=== PATIENT | male | born 1985 | race Caucasian/White ===

== ENCOUNTER 2019-07-23 18:02 | Emergency (ER) | payer OTHER, SELFPAY ==
[2019-07-23 18:05] VITALS: BP 129/68; PULSE 56; RESP 16; TEMP 37.2; O2SAT 98; BMI 29.9
--- NOTE | 2019-07-23 18:39 | ED_ITS ---
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 He denies any fever nor chills. He denies any nausea or vomiting. He states that he has had increased sputum production, particularly at night for the past few days. Both his and child are at home with similar symptoms although much more significant, they are both on antibiotics. Child recently started at daycare. MD Complaint: cough, sore throat, rhinorrhea and nasal congestion Onset (ago): week(s) Duration: intermittent Severity: mild Relieving factors: nothing Exacerbating factors: nothing Able to tolerate fluids by mouth: Yes Context: sick contacts Treatments prior to arrival: acetaminophen and ibuprofen Related Data Allergies Allergy/AdvReac Type Severity Reaction Status Date / Time Penicillins Allergy Unknown Verified 07/23/19 18:09 Review of Systems Constitutional Constitutional: Denies chills, Denies fatigue, Denies fever(s), Denies frequent falls, Denies lethargy and Denies weakness Eyes Eyes: Denies change in vision, Denies eye discharge, Denies irritation and Denies loss of vision ENT Ears, Nose, Mouth, and Throat: Denies change in voice, Denies dizziness, Reports nasal congestion, Reports nasal discharge, Denies neck pain, Reports sore throat and Denies throat swelling Cardiovascular Cardiovascular: Denies chest pain, Denies irregular heart rhythm, Denies lightheadedness, Denies palpitations, Denies dyspnea, Denies dyspnea on exertion and Denies orthopnea Respiratory Respiratory: Reports cough, Denies dyspnea, Denies dyspnea on exertion and Denies wheezing Gastrointestinal Gastrointestinal: Denies abdominal pain, Denies change in bowel habits, Denies diarrhea, Denies nausea and Denies vomiting Genitourinary Genitourinary: Denies hematuria, Denies flank pain, Denies urinary incontinence and Denies urinary urgency Musculoskeletal Musculoskeletal: Denies back pain, Denies muscle weakness, Denies neck pain, Denies numbness and Denies tingling Integumentary/Breasts Skin/Breast: Denies pruritus, Denies erythema, Denies rash and Denies wounds Neurologic Neurologic: Denies behavioral changes, Denies confusion, Denies dizziness, Denies frequent falls, Denies loss of vision, Denies numbness, Denies tingling and Denies weakness Psychiatric Psychiatric: Denies anxiety, Denies behavioral changes, Denies confusion, Denies depression, Denies homicidal ideation and Denies suicidal ideation Endocrine Endocrine: Denies fatigue, Denies flushing and Denies palpitations Hematologic/Lymphatic Hematologic/Lymphatic: Denies easy bruising Allergic/Immunologic Allergic/Immunologic: Denies urticaria, Denies throat swelling and Denies wheezing Patient History Social History Smoking Status: Never smoker alcohol intake frequency: 0-2 drinks per day Substance Use Type: does not use Exam Narrative Exam Narrative: GENERAL: [33] year old patient appears stated age. Well- nourished, well-developed patient, in mild distress. HEAD: Atraumatic. Normocephalic. EYES: Pupils equal round and reactive. Extraocular motions intact. No scleral icterus. No injection or drainage. ENT: Nose without bleeding, purulent drainage. Clear nasal drainage. Throat without erythema, tonsillar hypertrophy or exudate. Airway patent. NECK: Trachea midline. Non tender CARDIOVASCULAR: Regular rate and rhythm without murmurs, gallops, or rubs. RESPIRATORY: Clear to auscultation. Breath sounds equal bilaterally. No wheezes, rales, or rhonchi. GASTROINTESTINAL: Abdomen soft, non-tender, nondistended. EXTREMITIES: No edema or joint tenderness. BACK: Nontender without deformity or crepitance. No flank tenderness. NEURO: AOx3. SKIN: No rash or erythema of visible areas Initial Vital Signs Initial Vital Signs: Vital Signs Temperature 98.9 F 07/23/19 18:05 Pulse Rate 56 L 07/23/19 18:05 Respiratory Rate 16 07/23/19 18:05 Blood Pressure 129/68 07/23/19 18:05 Pulse Oximetry 98 07/23/19 18:05 Course Orders Ordered: ED Orders 07/23/19 18:42 XR chest 2V Stat Vital Signs Vital signs: Vital Signs - 8 hr 07/23/19 18:05 07/23/19 19:24 Temperature 98.9 F Pulse Rate 56 L Respiratory Rate 16 16 Blood Pressure 129/68 Pulse Oximetry 98 MDM - URI/Sore Throat Imaging Data Chest x-ray: Radiologist's impression: [address] [address] XRay Report Signed Patient: Erik Noland [facility]#: [id number] : 1985Acct:[id number] Age/Sex: 33 / MDate of Service: 07/23/19 Loc: ED Accession Number: [id number] Procedure: XR chest 2V Ordering Provider: Benjamín Davis D.O. PROCEDURE: XR CHEST 2V INDICATIONS: cough, fever TECHNIQUE: 2 views of the chest were acquired. COMPARISON: None. FINDINGS: Surgical changes and devices: None. Lungs and pleura: Lungs are clear. No pleural effusions or pneumothorax. Mediastinum: Mediastinal contours are normal. Heart size is normal. Bones and chest wall: No suspicious bony abnormalities. Soft tissues appear unremarkable. IMPRESSION: No evidence acute pulmonary process. Dictated by: Rajeev Cervantes M.D. on 07/23/2019 at 19:05 Approved by: Rajeev Cervantes M.D. on 07/23/2019 at 19:06 Discharge Plan Departure Patient Disposition: Home Clinical Impression: Viral infection Discharge Date/Time: 07/23/19 19:24 Instructions: DI for Viral Upper Respiratory Infection -- Adult Activity Restrictions/Additional Instructions: *You have been diagnosed with [ viral upper respiratory infection ] *What to do: *Take medications as directed: over the counter cough and cold meds *Follow up with your primary care provider in 2-3 days, call for an appointment. Let them know you were seen in the Emergency Department and that we ask that you be seen in follow up *Return to ER if you should have any new, worsening or concerning symptoms]
--- NOTE | 2019-07-23 18:42 | DI.RAD.S_ITS ---
PROCEDURE: XR CHEST 2V INDICATIONS: cough, fever TECHNIQUE: 2 views of the chest were acquired. COMPARISON: None. FINDINGS: Surgical changes and devices: None. Lungs and pleura: Lungs are clear. No pleural effusions or pneumothorax. Mediastinum: Mediastinal contours are normal. Heart size is normal. Bones and chest wall: No suspicious bony abnormalities. Soft tissues appear unremarkable. IMPRESSION: No evidence acute pulmonary process. Dictated by: Rajeev Cervantes M.D. on 07/23/2019 at 19:05 Approved by: Rajeev Cervantes M.D. on 07/23/2019 at 19:06
[2019-07-23 19:24] VITALS: RESP 16
== END 2019-07-23 19:24 | disposition home or self-care (01) ==
PROVIDERS: Emergency Provider Emergency Medicine
DX: B34.9 Viral infection, unspecified (principal); R05 Cough
CPT/HCPCS: 71046; 99282; 99283